=== PATIENT | female | born 1980 ===

== ENCOUNTER 2025-04-26 11:00 | Day surgery (SDC) | payer OTHER ==
[2025-04-25 11:23] LABS: BASO % 0.6 % (0.1-1.2); EOS # 0.10 (0.04-0.54); EOS % 1.5 % (0.7-7.0); LYMPH # 1.46 (1.18-3.74); LYMPH % 22.3 % (19.3-53.1); MEAN PLATELET VOLUME 9.60 fl (9.4-12.4); MONO # 0.56 (0.24-0.82); MONO % 8.5 % (4.7-12.5); NEUT # 4.39 (1.56-6.13); NEUT % 66.9 % (34.0-71.1); RED CELL DISTRIBUTION WIDTH 13.1 % (11.6-14.4)
[2025-04-25 11:42] LABS: INR 1.04
[2025-04-25 12:23] LABS: ALT/SGPT 16.0 U/L (12-78); AST/SGOT 12.0 U/L (15-37); BILIRUBIN TOTAL 0.63 mg/dL (0.3-1.2); BUN CREA RATIO 13.0 (7.0-25.0); CREATININE SERUM 0.7 mg/dL (0.55-1.02); GFR 90.9; GLOBULINA 3.3 G/DL (2.4-3.5); GLUCOSE FASTING 92.0 mg/dL (65-100); OSMOLALITY SERUM 280.0 MOSM/KG (275-295)
[2025-04-25 12:26] VITALS: BP 108/70
[~2025-04-26] VITALS: Ht 167.6 cm; Wt 62.6 kg
[2025-04-26] MEDS ORDERED: CEFAZOLIN SODIUM 1,000 MG VIAL ONE (12:14)
[2025-04-26] MEDS ORDERED: LIDOCAINE HCL 1% 10ML VIAL ONE (13:32)
[2025-04-26] MEDS ORDERED: BUPIVACAINE HCL/Mpf 0.5% 10ML VIAL ONE (13:32)
[2025-04-26] MEDS ORDERED: POVIDONE-IODINE 118 ML BOTT TOP ONE (13:33)
[2025-04-26] MEDS ORDERED: PROMETHAZINE HCL 50 MG/ML AMPUL IM ONE (14:15)
[2025-05-02] MEDS ORDERED: CEFAZOLIN SODIUM 1,000 MG VIAL IV ONE (14:30)
== END 2025-04-26 18:05 | disposition home or self-care (01) ==
LOC: CIR.AMB 11:00
PROVIDERS: ATTEND Obstetrics & Gynecology
DX: N83.291 Other ovarian cyst, right side (principal); N84.0 Polyp of corpus uteri; N93.8 Other specified abnormal uterine and vaginal bleeding